=== PATIENT | male | born 1995 | race Caucasian/White ===

== ENCOUNTER → 2018-12-11 | Outpatient (CLI) | payer SELFPAY ==
--- NOTE | 2018-12-11 13:41 | REP ---
Clinical: Pain and decreased range of motion Technique: AP, lateral, bilateral oblique and sunrise views. Findings: Osseous structures are intact and there is no evidence for acute fracture or dislocation. Lateral view suggests prepatellar soft tissue swelling and possible suprapatellar effusion. No subcutaneous emphysema or radiodense foreign body. Impression: Swelling and possible suprapatellar effusion. No acute fracture or dislocation. Electronically Signed by Dwayne Monreal MD 12/11/2018 01:32 P
== END ==
LOC: M LRY 13:07
PROVIDERS: ATTEND Physician Assistant
DX: M25.562 Pain in left knee (principal)